=== PATIENT | female | born 1975 | race Caucasian/White ===

== ENCOUNTER → 2017-07-12 17:43 | Outpatient (CLI) | payer MEDICAID ==
[2011-10-25 06:36] VITALS: BMI 30.6
== END | disposition home or self-care (01) ==
LOC: D.MAMMO 15:00
DX: N63.10 Unspecified lump in the right breast, unspecified quadrant (principal)

== ENCOUNTER → 2018-01-10 17:54 | Outpatient (CLI) | payer MEDICAID ==
[2011-10-25 06:36] VITALS: BMI 30.6
== END | disposition home or self-care (01) ==
LOC: D.MAMMO 09:30
DX: Z12.31 Encounter for screening mammogram for malignant neoplasm of breast (principal)

== ENCOUNTER → 2019-07-21 22:00 | Outpatient (CLI) | payer MEDICAID ==
[2011-10-25 06:36] VITALS: BMI 30.6
== END | disposition home or self-care (01) ==
LOC: D.MAMMO 11:45
PROVIDERS: ATTEND Obstetrics & Gynecology
DX: Z12.31 Encounter for screening mammogram for malignant neoplasm of breast (principal)

== ENCOUNTER 2019-08-19 15:57 | Emergency (ER) | payer MEDICAID ==
[~2019-08-19] VITALS: Ht 154.9 cm; Wt 81.8 kg
[2019-08-19 16:34] VITALS: BP 157/95; Ht 154.9 cm; Wt 81.8 kg
[2019-08-19] MEDS ORDERED: TRILEPTAL300 MG PO (16:35)
[2019-08-19] MEDS ORDERED: ELAVIL75 MG PO (16:36)
[2019-08-19] MEDS ORDERED: MUPIROCIN22 GM TOPICAL (16:50)
== END 2019-08-19 17:31 | disposition home or self-care (01) ==
LOC: D.ER 15:57
DX: S51.011A Laceration without foreign body of right elbow, initial encounter (principal); W19.XXXA Unspecified fall, initial encounter; Y93.9 Activity, unspecified; Y92.9 Unspecified place or not applicable